=== PATIENT | female | born 1930 | race Asian ===

== ENCOUNTER 2016-10-14 13:08 | Inpatient (IN) | payer MEDICAID, MEDICARE ==
[2016-10-14] MEDS ORDERED: BABY ASPIRIN PO ONE (15:06)
--- NOTE | 2016-10-14 15:09 | Emergency Department Report ---
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 Reports patient unable to swallow BP medication Complaint: chest pain -: Gradual, days(s) Onset: during rest Pain Location: substernal ( ) Pain Radiation: neck Severity: mild Severity scale (0 -10): 2 Quality: aching Consistency: intermittent Improves With: nothing Worsens With: other (unable to swallow BP medication) re: denies: nausea, vomting, diaphoresis, dyspnea, sense of impending doom Other Symptoms: denies: cough, fever, syncope, rash, acid taste in mouth, leg swelling, palpitations, burping - Related Data Home Medications Medication Instructions Recorded Confirmed Last Taken Cyanocobalamin (Vitamin B-12) 500 mcg PO DAILY 07/18/16 10/14/16 10/14/16 [B-12] Ergocalciferol [Vitamin D2] 1 cap PO QWEEK 10/14/16 10/14/16 10/13/16 Losartan [Cozaar] 100 mg PO QDAY 10/14/16 10/14/16 10/14/16 hydrALAZINE [Apresoline TAB] 50 mg PO Q8HR 10/14/16 10/14/16 10/14/16 Previous Rx's Medication Instructions Recorded Last Taken Type Aspirin [Aspirin TAB] 325 mg PO QDAY #30 tablet 07/23/16 Unknown Rx Allergies Allergy/AdvReac Type Severity Reaction Status Date / Time No Known Allergies Allergy Unverified 07/18/16 10:47 MADISYN score - Madisyn Score Age > 65: (1) Yes Aspirin use within the Past 7 Days: (1) Yes 3 or more CAD Risk Factors: (0) No 2 or more Angina events in past 24 hrs: (1) Yes Known CAD with more than 50% Stenosis: (0) No Elevated Cardiac Markers: (0) No ST Deviation Greater than 0.5mm: (0) No MADISYN Score: 3 ED Review of Systems ROS: Stated complaint: HTN Other details as noted in HPI Other: GENERAL: No weight change, fatigue, weakness, fever, chills, or night sweats SKIN: No changes in skin or hair, no itching, no rashes, no jaundice HEAD: No trauma, headache, or visual changes EYES: No blurriness, tearing, itching, acute visual loss, conjunctival discoloration, or scleral icterus EARS: No hearing loss, tinnitus, vertigo, or earache NOSE: No rhinorrhea, stuffiness, sneezing, itching, or epistaxis MOUTH: No bleeding gums, hoarseness, sore throat, or swelling CARDIAC: chest pain RESPIRATORY: No shortness of breath, wheeze, cough, sputum production, hemoptysis, pneumonia, asthma, bronchitis, or emphysema GI: No change in appetite, nausea, vomiting, dysphagia, change in bowel frequency, diarrhea, constipation, bleeding, hematemesis, melena, hematochezia, or abdominal pain URINARY: No frequency, urgency, polyuria, dysuria, hematuria, or incontinence MUSCULOSKELETAL: No muscle weakness, joint stiffness, decrease in range of motion, redness, swelling, tenderness NEUROLOGIC: No loss of sensation, numbness, tingling, tremors, weakness, paralysis, seizures HEMATOLOGIC: No anemia, easy bruising, bleeding, petechiae, or purpura ENDOCRINE: No hot or cold intolerance, sweating, polyuria, polydipsia or, polyphagia no thyroid problems PSYCHIATRIC: No change in mood, no anxiety, no depression ED Past Medical Hx - Past Medical History Previous Medical History?: Yes Hx Hypertension: Yes Hx Congestive Heart Failure: No Hx Diabetes: No Hx Asthma: No Hx COPD: No Additional medical history: HIGH CHOLESTROL - Surgical History Past Surgical History?: Yes Additional Surgical History: CATARACT SURGERY - Social History Smoking Status: Never Smoker Substance Use Type: None - Medications Home Medications: Home Medications Medication Instructions Recorded Confirmed Last Taken Type Cyanocobalamin (Vitamin B-12) 500 mcg PO DAILY 07/18/16 10/14/16 10/14/16 History [B-12] Aspirin [Aspirin TAB] 325 mg PO QDAY #30 tablet 07/23/16 10/14/16 Unknown Rx Ergocalciferol [Vitamin D2] 1 cap PO QWEEK 10/14/16 10/14/16 10/13/16 History Losartan [Cozaar] 100 mg PO QDAY 10/14/16 10/14/16 10/14/16 History hydrALAZINE [Apresoline TAB] 50 mg PO Q8HR 10/14/16 10/14/16 10/14/16 History ED Physical Exam - General Limitations: No Limitations - Other Other exam information: GENERAL: Patient in no acute distress HEAD: Normocephalic, atraumatic EYES: PERRLA, EOM intact, no scleral icterus, no papilledema, no conjunctival hemorrhage, visual armas and acuity wnl, NOSE: No tenderness, discharge, sinus tenderness MOUTH: No erythema, bleeding, exudate HEART: Regular rate and rhythm, no murmur, S1-S2 are auscultated, pulses are symmetric LUNGS: No wheezing, rales, rhonchi, bilateral breath sounds ABDOMEN: Normal bowel sounds, no tenderness, no rebound, no guarding, no masses , no CVA tenderness MUSCULOSKELETAL: Normal joint range of motion, no redness, no swelling, no tenderness NEUROLOGIC:Alert, Cranial nerves intact, normal sensation, normal strength, normal gait, no cerebellar deficit SKIN: Skin is warm and dry, no wounds, no rashes ED Course Vital Signs 10/14/16 10/14/16 10/14/16 14:42 15:56 16:00 Temperature 98.6 F Pulse Rate 98 H 81 86 Respiratory 16 14 14 Rate Blood Pressure 212/86 186/59 O2 Sat by Pulse 100 97 Oximetry 10/14/16 10/14/16 10/14/16 16:16 16:30 16:46 Temperature Pulse Rate 88 93 H 89 Respiratory 13 17 16 Rate Blood Pressure 184/62 184/62 189/65 O2 Sat by Pulse 97 99 98 Oximetry 10/14/16 10/14/16 10/14/16 17:00 17:02 17:08 Temperature Pulse Rate 89 88 Respiratory 16 22 Rate Blood Pressure 194/56 189/65 O2 Sat by Pulse 98 98 Oximetry 10/14/16 10/14/16 10/14/16 17:15 17:30 17:45 Temperature Pulse Rate 84 89 96 H Respiratory 15 16 19 Rate Blood Pressure 189/65 169/73 169/73 O2 Sat by Pulse 98 97 99 Oximetry 10/14/16 10/14/16 10/14/16 18:01 18:15 18:30 Temperature Pulse Rate 82 82 78 Respiratory 17 16 17 Rate Blood Pressure 146/61 146/61 144/60 O2 Sat by Pulse 97 99 98 Oximetry 10/14/16 18:45 Temperature Pulse Rate 80 Respiratory 15 Rate Blood Pressure 144/60 O2 Sat by Pulse 98 Oximetry ED Medical Decision Making - Lab Data Result diagrams: 10/14/16 14:53 10/14/16 14:53 - EKG Data When compared to previous EKG there are: no significant change - Radiology Data Radiology results: report reviewed - Medical Decision Making Patient comfortable. Updated with results. Plan admission for further evaluation. Patient agrees with plan. Hospitalists accepts admission. Critical care attestation.: If time is entered above; I have spent that time in minutes in the direct care of this critically ill patient, excluding procedure time. ED Disposition Clinical Impression: Hypertensive emergency CHF (congestive heart failure) Qualifiers: Congestive heart failure type: unspecified congestive heart failure type Congestive heart failure chronicity: unspecified congestive heart failure chronicity Qualified Code(s): I50.9 - Heart failure, unspecified Chest pain Qualifiers: Chest pain type: unspecified Qualified Code(s): R07.9 - Chest pain, unspecified Disposition: OP ADMITTED IP TO THIS HOSP Is pt being admited?: Yes Condition: Stable Time of Disposition: 16:52
[2016-10-14 15:10] LABS: Basophils % (Auto) 0.3 % (0.0-1.8); Eosinophils % (Auto) 0.4 % (0.0-4.3); Hematocrit 32.6 % (30.3-42.9); Hemoglobin 10.6 gm/dl (10.1-14.3); Mean Corpuscular HGB Conc 33 % (30-34); Mean Corpuscular Volume 77 fl (79-97); Platelet Count 238 K/mm3 (140-440); Red Blood Count 4.22 M/mm3 (3.65-5.03); Red Cell Distribution Width 14.6 % (13.2-15.2); White Blood Count 9.1 K/mm3 (4.5-11.0)
[2016-10-14 15:15] LABS: Mean Corpuscular Hemoglobin 25 pg (28-32)
[2016-10-14 15:27] LABS: Calcium 9.3 mg/dL (8.4-10.2); Chloride 91.5 mmol/L (98-107); Potassium 3.5 mmol/L (3.6-5.0)
[2016-10-14 15:40] LABS: INR 0.99 (0.87-1.13)
[2016-10-14 15:41] LABS: Partial Thromboplastin Time 52.4 Sec. (24.2-36.6)
--- NOTE | 2016-10-14 15:56 | Cat Scan Report ---
Cranial CT without contrast. History: Altered mental status. Findings: Comparison is made to the previous study on July 21, 2016. There is no evidence of acute hemorrhage or infarct. 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 There are no masses or extra-axial collections. Age-appropriate senescent changes are again noted. The calvarium is intact. Impression: No acute findings or interval changes since July 21, 2016.
--- NOTE | 2016-10-14 16:07 | XRay Report ---
AP CHEST :10/14/16 15:44 CLINICAL: Tachycardia. COMPARISON:07/18/16 FINDINGS: Normal heart and pulmonary vasculature. Aortic ectasia and calcification. The lungs are normally expanded and clear. The bones and soft tissues are normal. IMPRESSION: No acute cardiopulmonary process.
--- NOTE | 2016-10-14 16:17 | Admit Criteria Form ---
Admission Criteria Documentation: CHEST PAIN Clinical Indications for Admission to Inpatient Care (Place 'X' for any and all applicable criteria): Admission is indicated for chest pain and ANY ONE of the following(1)(2)(3)(4)(5 ): [ ]I. Angina with acute coronary syndrome (Also use Myocardial Infarction or Angina guideline) [ ]II. Hemodynamic instability [X ]III. Angina needing acute intervention as indicated by ALL of the following (11)(12): [ X]a) Unstable angina is present as indicated by angina that is ANY ONE of the following: [ ]i) New onset [ ]ii) Nocturnal [ ]iii) Prolonged at rest [X ]iv) Progressive [ X]b) Angina warrants acute intervention as indicated by ANY ONE of the following: [ ]i) Recurrent angina (e.g, not responding as previously to treatment) [ ]ii) Angina at rest or with low-level activities despite initial medical therapy [ ]iii) New or presumably new ST-segment depression on ECG [ ]iv) Signs or symptoms of heart failure (eg, dyspnea, pulmonary edema) [ ]v) New or worsening mitral regurgitation [ ]vi) Hemodynamic instability [ ]vii) Dangerous arrhythmia (eg, sustained ventricular tachycardia) [ ]viii) History of percutaneous coronary intervention within 6 months [ ]ix) History of coronary artery bypass graft surgery [ X]x) MADISYN risk score of 2 or greater[A] [ ]xi) History of Diabetes(14) [ ]xii) High-risk cardiac ischemia findings on noninvasive testing (e.g, echocardiogram, treadmill testing, nuclear scan) [ ]xiii) Chronic renal insufficiency (ie, estimated GFR less than 60 mL/min/1.732m) [ ]xiv) Left ventricular ejection fraction less than 40% [ ]IV. Evidence of CO (eg, cardiac biomarkers positive, ST-segment elevation on ECG) also use Myocardial Infarction Criteria Form. [ ]V. Pulmonary edema [ ]. Respiratory distress [ ]VII. Chest pain indicative of serious diagnosis other than coronary artery disease (eg, aortic dissection) [ ]VIII. Contraindications and/or Inappropriate clinical situations for Observational Care in patients with Chest Pain, when ANY ONE of the following is required: [ ]a) Patient with risk factor for pulmonary embolism, acute coronary syndrome and myocardial infarction (18) [ ]b) Patient with Pulmonary embolism require an average LOS of 4.3 days, therefore emergency department observation management is inappropriate 18,23 [ ]c) Painful condition/s in the elderly, have the highest rate of recidivism after emergency department observation management (10.8%) 20,21,22 [ ]d) Elevated cardiac biomarker requires intensive and exhaustive care (19) [X ]IX. General contraindications and/or Inappropriate clinical situations for Observational Care in patients with Chest Pain, when ANY ONE of the following is required: [ ]a) Prediction of prolongation of LOS based on ANY ONE of the following may be considered as a contraindication for observational care 2, 3, 4, 5, 6, 7, 8, 9, 10, 11 [ ]i) Age > 65 yrs. [ ]ii) Patient arriving by ambulance [ ]iii) Patient with high acuity [ ]iv) Patient requiring vital sign monitoring [ ]v) Patient on IV medication [X ]b) Systolic blood pressures 180mmHg 3,12 [ ]c) Patient with altered mental status including delirium and other alteration of consciousness, (3) [ ]d) Patient whose discharge disposition will be to a nursing home home or rehabilitation home should not be managed in Emergency Department Observation Unit. CMS rule requires 3 days hospital stay before such placement. 3,13 [ ]e) Patient with failure to thrive due to broad array of etiologies 3,16,17 [ ]f) Inability to ambulate 3,14 Extended stay beyond goal length of stay may be needed for (1)(28): [ ]a) Specific condition diagnosed after evaluation (eg, pulmonary embolism, aortic dissection) [ ]b) Unstable angina [ ]c) Continued suspicion of acute coronary syndrome with inability to complete needed cardiac evaluation (eg, patient clinically unable to undergo stress testing) [ ]d) Myocardial infarction (Contents from ANGINA and CHEST PAIN clinical indications for admission to inpatient care have been integrated in this form) The original [employer] content created by [employer] has been revised. The portions of the content which have been revised are identified through the use of italic text or in bold, and [email or web address] has neither reviewed nor approved the modified material. All other unmodified content is copyright [employer]. Please see references footnoted in the original [facility] edition 2016 Admission Criteria Met: Yes
[2016-10-14] MEDS ORDERED: K-DUR PO ONE (16:49)
[2016-10-14] MEDS ORDERED: LASIX IV ONE (16:49)
[2016-10-14] MEDS ORDERED: CATAPRES PO ONE (16:49)
--- NOTE | 2016-10-14 16:51 | History and Physical Report ---
History of Present Illness Chief complaint: chest pain History of present illness: 86 YO Female with HTN, HLD, GERD presents with Chest pain. Pt states that she has been experiencing pain in her chest for the past week, with worsening symptoms over the past 12 hours. Pt acknowledges difficulty swallowing, but denies shortness of breath, fever, chills, palpitations, unintentional weight loss, night sweats, syncope, productive cough, loss of bowel/bladder continence , leg swelling/calf pain, individual/family history of DVT/PE, trauma, or recent ill contacts. Past History Past Medical History: GERD, hypertension, hyperlipidemia Past Surgical History: cataract removal Social history: . denies: smoking, alcohol abuse, prescription drug abuse Family history: hypertension Medications and Allergies Allergies Allergy/AdvReac Type Severity Reaction Status Date / Time No Known Allergies Allergy Unverified 07/18/16 10:47 Home Medications Medication Instructions Recorded Confirmed Last Taken Type Cyanocobalamin (Vitamin B-12) 500 mcg PO DAILY 07/18/16 10/14/16 10/14/16 History [B-12] Aspirin [Aspirin TAB] 325 mg PO QDAY #30 tablet 07/23/16 10/14/16 Unknown Rx Ergocalciferol [Vitamin D2] 1 cap PO QWEEK 10/14/16 10/14/16 10/13/16 History Losartan [Cozaar] 100 mg PO QDAY 10/14/16 10/14/16 10/14/16 History hydrALAZINE [Apresoline TAB] 50 mg PO Q8HR 10/14/16 10/14/16 10/14/16 History Review of Systems All systems: negative Cardiovascular: chest pain Exam - Constitutional Vitals: Temp Pulse Resp BP Pulse Ox 98.6 F 98 H 16 212/86 100 10/14/16 14:42 10/14/16 14:42 10/14/16 14:42 10/14/16 14:42 10/14/16 14:42 General appearance: Present: obese - EENT Eyes: Present: PERRL ENT: hearing intact, clear oral mucosa - Neck Neck: Present: supple, normal ROM - Respiratory Respiratory effort: normal Respiratory: bilateral: diminished - Cardiovascular Heart Sounds: Present: S1 & S2. Absent: rub, click - Extremities Extremities: pulses symmetrical, No edema Extremity abnormal: edema Peripheral Pulses: within normal limits - Abdominal General gastrointestinal: Present: soft, non-tender, non-distended, normal bowel sounds Female genitourinary: Present: normal - Integumentary Integumentary: Present: clear, warm, dry - Musculoskeletal Musculoskeletal: gait normal, strength equal bilaterally - Psychiatric Psychiatric: appropriate mood/affect, intact judgment & insight - Neurologic Neurologic: CNII-XII intact, moves all extremities Results - Labs CBC & Chem 7: 10/14/16 14:53 10/14/16 14:53 Labs: Abnormal lab results 10/14/16 10/14/16 10/14/16 Range/Units 14:53 14:53 15:16 MCV 77 L (79-97) fl MCH 25 L (28-32) pg Lymph % (Auto) 12.1 L (13.4-35.0) % [place] % (Auto) 8.7 H (0.0-7.3) % Lymph # 1.1 L (1.2-5.4) K/mm3 Seg Neutrophils % 78.5 H (40.0-70.0) % APTT (24.2-36.6) Sec. Sodium 129 L (137-145) mmol/L Potassium 3.5 L (3.6-5.0) mmol/L Chloride 91.5 L (98-107) mmol/L Carbon Dioxide 17 L (22-30) mmol/L Glucose 114 H (65-100) mg/dL NT-Pro-B Natriuret Pep 1816 H (0-900) pg/mL 10/14/16 Range/Units 15:16 MCV (79-97) fl MCH (28-32) pg Lymph % (Auto) (13.4-35.0) % [place] % (Auto) (0.0-7.3) % Lymph # (1.2-5.4) K/mm3 Seg Neutrophils % (40.0-70.0) % APTT 52.4 H (24.2-36.6) Sec. Sodium (137-145) mmol/L Potassium (3.6-5.0) mmol/L Chloride (98-107) mmol/L Carbon Dioxide (22-30) mmol/L Glucose (65-100) mg/dL NT-Pro-B Natriuret Pep (0-900) pg/mL Assessment and Plan - Patient Problems (1) ACS (acute coronary syndrome) Current Visit: Yes Status: Acute Plan to address problem: Serial Cardiac enzymes, EKG, telemetry, supportive care, echo, stress test, cardiology consulted, (2) CHF (congestive heart failure) Current Visit: Yes Status: Acute Qualifiers: Congestive heart failure type: C Congestive heart failure chronicity: C Plan to address problem: CHF protocol: fluid restriction, diuresis, afterload reduction, echo, supportive care, uop q shift, (3) Malignant hypertension Current Visit: Yes Status: Acute Plan to address problem: Monitor bp q shift, hydralazine prn, resume home medication (4) Hyponatremia syndrome Current Visit: Yes Status: Acute Plan to address problem: supportive care, repeat bmp in am (5) Metabolic acidosis Current Visit: Yes Status: Acute Plan to address problem: treat chf, ivf, suuportive care, (6) DVT prophylaxis Current Visit: Yes Status: Acute
[2016-10-14] MEDS ORDERED: DUONEB 0.5 MG-3 MG/3 ML SOLN IH PRN (18:27)
[2016-10-14] MEDS ORDERED: DULCOLAX PR PRN (18:27)
[2016-10-14] MEDS ORDERED: TYLENOL PO PRN (18:27)
[2016-10-14] MEDS ORDERED: MILK OF MAGNESIA PO PRN (18:27)
[2016-10-14] MEDS ORDERED: ZOFRAN IV PRN (18:27)
[2016-10-14] MEDS ORDERED: APRESOLINE IV PRN (18:32)
[2016-10-14] MEDS ORDERED: SODIUM CHLORIDE FLUSH SYRINGE 10 ML IV PRN (18:34)
[2016-10-14] MEDS ORDERED: PROVENTIL IH PRN (18:57)
[2016-10-14 22:53] LABS: Creatine Kinase MB 5.3 ng/mL (0.0-4.0)
[2016-10-14] MEDS: APRESOLINE PO SCH (23:25)
[2016-10-15] MEDS: APRESOLINE PO SCH ×3 (05:56→21:59)
[2016-10-15] MEDS ORDERED: LASIX IV SCH (10:00)
[2016-10-15] MEDS ORDERED: NON-FORMULARY (Losartan [Cozaar] 100 MG) PO SCH (10:00)
[2016-10-15] MEDS ORDERED: LEXISCAN IV ONE ×2 (10:53→11:01)
--- NOTE | 2016-10-15 14:58 | Progress Note ---
Assessment and Plan Assessment and plan: SOB Chest pain - Serial cardiac enzymes were negative - EKG no ST elevation VA - Stress test and echo was done pending reading Disposition - Patient most likely will be discharged tomorrow morning History Interval history: Patient was seen and evaluated this morning, a lot of family members were in the room, patient doesn't speak Estonian and her family member police detective for her. Patient denies shortness of breath and chest pain. Hospitalist Physical - Physical exam Narrative exam: Not in cardiopulmonary distress. The patient appeared well nourished and normally developed. Vital signs as documented. Head exam is unremarkable. No scleral icterus . Neck is without jugular venous distension, thyromegaly, or carotid bruits. Lungs are clear to auscultation. Cardiac exam reveals regular rate and Rhythm. First and second heart sounds normal. No murmurs, rubs or gallops. Abdominal exam reveals normal bowel sounds, no masses, no organomegaly and no aortic enlargement. Extremities are nonedematous and both femoral and pedal pulses are normal. 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 - Constitutional Vitals: Temp Pulse Resp BP Pulse Ox 98.2 F 111 H 20 137/60 94 10/15/16 01:50 10/15/16 12:28 10/14/16 23:00 10/15/16 11:42 10/15/16 10:00 General appearance: Present: obese Results - Labs CBC & Chem 7: 10/14/16 14:53 10/14/16 14:53 Labs: Laboratory Last Values WBC 9.1 K/mm3 (4.5-11.0) 10/14/16 14:53 RBC 4.22 M/mm3 (3.65-5.03) 10/14/16 14:53 Hgb 10.6 gm/dl (10.1-14.3) 10/14/16 14:53 Hct 32.6 % (30.3-42.9) 10/14/16 14:53 MCV 77 fl (79-97) L 10/14/16 14:53 MCH 25 pg (28-32) L 10/14/16 14:53 MCHC 33 % (30-34) 10/14/16 14:53 RDW 14.6 % (13.2-15.2) 10/14/16 14:53 Plt Count 238 K/mm3 (140-440) 10/14/16 14:53 Lymph % (Auto) 12.1 % (13.4-35.0) L 10/14/16 14:53 [place] % (Auto) 8.7 % (0.0-7.3) H 10/14/16 14:53 Eos % (Auto) 0.4 % (0.0-4.3) 10/14/16 14:53 Baso % (Auto) 0.3 % (0.0-1.8) 10/14/16 14:53 Lymph # 1.1 K/mm3 (1.2-5.4) L 10/14/16 14:53 [place] # 0.8 K/mm3 (0.0-0.8) 10/14/16 14:53 Eos # 0.0 K/mm3 (0.0-0.4) 10/14/16 14:53 Baso # 0.0 K/mm3 (0.0-0.1) 10/14/16 14:53 Seg Neutrophils % 78.5 % (40.0-70.0) H 10/14/16 14:53 Seg Neutrophils # 7.1 K/mm3 (1.8-7.7) 10/14/16 14:53 PT 13.0 Sec. (12.2-14.9) 10/14/16 15:16 INR 0.99 (0.87-1.13) 10/14/16 15:16 APTT 52.4 Sec. (24.2-36.6) H 10/14/16 15:16 Sodium 129 mmol/L (137-145) L 10/14/16 14:53 Potassium 3.5 mmol/L (3.6-5.0) L 10/14/16 14:53 Chloride 91.5 mmol/L (98-107) L 10/14/16 14:53 Carbon Dioxide 17 mmol/L (22-30) L 10/14/16 14:53 Anion Gap 24 mmol/L 10/14/16 14:53 BUN 17 mg/dL (7-17) 10/14/16 14:53 Creatinine 1.0 mg/dL (0.7-1.2) 10/14/16 14:53 Estimated GFR 52 ml/min 10/14/16 14:53 BUN/Creatinine Ratio 17.00 % 10/14/16 14:53 Glucose 114 mg/dL (65-100) H 10/14/16 14:53 Calcium 9.3 mg/dL (8.4-10.2) 10/14/16 14:53 Total Creatine Kinase 286 units/L (30-135) H 10/15/16 00:18 CK-MB (CK-2) 5.0 ng/mL (0.0-4.0) H 10/15/16 00:18 CK-MB (CK-2) Rel Index 1.7 (0-4) 10/15/16 00:18 Troponin T 0.017 ng/mL (0.00-0.029) 10/14/16 20:53 NT-Pro-B Natriuret Pep 1816 pg/mL (0-900) H 10/14/16 15:16
[2016-10-15] MEDS: COZAAR PO SCH (16:14)
[2016-10-15] MEDS: ASPIRIN PO SCH (16:14)
[2016-10-15] MEDS: VITAMIN B-12 PO SCH (16:15)
--- NOTE | 2016-10-15 20:41 | Consultation ---
History of Present Illness Consult date: 10/15/16 Consult reason: shortness of breath History of present illness: The patient is an 86-year-old male who does not speak [place]an. History taking is difficult due to language barrier. He presented to the hospital with complaints of shortness of breath and blood pressure elevation. On presentation , the blood pressure was over 200 systolic. There was no report of chest pain or palpitations or syncope. Cardiac consultation was requested for "CHF", but patient has no lower extremity edema, and chest x-ray on my review shows no interstitial edema or CHF. The ECG is normal sinus rhythm with left ventricular hypertrophy by voltage criteria, otherwise normal ECG. Cardiac workup today includes an echocardiogram that showed well-preserved left ventricular systolic function, ejection fraction 50-55%, calcified aortic valve with mild aortic stenosis otherwise no significant mild disease on the echo. Persantine thallium stress test also done today was normal. Past History Past Medical History: GERD, hypertension, hyperlipidemia Past Surgical History: cataract removal Social history: . denies: smoking, alcohol abuse, prescription drug abuse Family history: hypertension Medications and Allergies Allergies Allergy/AdvReac Type Severity Reaction Status Date / Time No Known Allergies Allergy Unverified 07/18/16 10:47 Home Medications Medication Instructions Recorded Confirmed Last Taken Type Cyanocobalamin (Vitamin B-12) 500 mcg PO DAILY 07/18/16 10/14/16 10/14/16 History [B-12] Aspirin [Aspirin TAB] 325 mg PO QDAY #30 tablet 07/23/16 10/14/16 Unknown Rx Ergocalciferol [Vitamin D2] 1 cap PO QWEEK 10/14/16 10/14/16 10/13/16 History Losartan [Cozaar] 100 mg PO QDAY 10/14/16 10/14/16 10/14/16 History hydrALAZINE [Apresoline TAB] 50 mg PO Q8HR 10/14/16 10/14/16 10/14/16 History Active Meds: Active Medications Acetaminophen (Tylenol) 650 mg PO Q4H PRN PRN Reason: Pain MILD(1-3)/Fever >100.5/MONCADA Albuterol (Proventil) 2.5 mg IH Q4HRT PRN PRN Reason: Shortness Of Breath Aspirin (Aspirin) 325 mg PO QDAY ANDREAS Last Admin: 10/15/16 16:14 Dose: 325 mg Bisacodyl (Dulcolax) 10 mg AK QDAY PRN PRN Reason: Constipation unrelieved by MOM Cyanocobalamin (Vitamin B-12) 500 mcg PO DAILY [facility] Last Admin: 10/15/16 16:15 Dose: 500 mcg Ergocalciferol (Vitamin D2) 50,000 unit PO Mo [facility] Furosemide (Lasix) 20 mg IV QDAY [facility] Last Admin: 10/15/16 16:15 Dose: 20 mg Hydralazine HCl (Apresoline) 50 mg PO Q8HR [facility] Last Admin: 10/15/16 16:16 Dose: 50 mg Hydralazine HCl (Apresoline) 10 mg IV Q6HR PRN PRN Reason: Hypertension Losartan Potassium (Cozaar) 100 mg PO QDAY [facility] Last Admin: 10/15/16 16:14 Dose: 100 mg Magnesium Hydroxide (Milk Of Magnesia) 30 ml PO Q4H PRN PRN Reason: Constipation Ondansetron HCl (Zofran) 4 mg IV Q8H PRN PRN Reason: N/V unrelieved by Reglan Sodium Chloride (Sodium Chloride Flush Syringe 10 Ml) 10 ml IV PRN PRN PRN Reason: LINE FLUSH Review of Systems Cardiovascular: shortness of breath, no chest pain, no orthopnea, no palpitations, no rapid/irregular heart beat, no edema, no syncope, no lightheadedness Physical Examination Vital Signs Temp Pulse Resp BP Pulse Ox 98.6 F 98 H 16 212/86 100 10/14/16 14:42 10/14/16 14:42 10/14/16 14:42 10/14/16 14:42 10/14/16 14:42 General appearance: no acute distress HEENT: Positive: PERRL Neck: Positive: neck supple Cardiac: Positive: Reg Rate and Rhythm, Systolic Murmur Lungs: Positive: Decreased Breath Sounds Neuro: Positive: Grossly Intact Abdomen: Positive: Soft Female genitourinary: deferred Skin: Positive: Clear Extremities: Absent: edema Results 10/14/16 14:53 10/14/16 14:53 Cardiac Enzymes 10/14/16 10/15/16 Range/Units 20:53 00:18 CK-MB (CK-2) 5.3 H 5.0 H (0.0-4.0) ng/mL EKG interpretations - Telemetry EKG Rhythm: Sinus Rhythm Assessment and Plan Patient's cardiac workup is negative including ECG, cardiac enzymes, echocardiogram and Persantine thallium. Aortic valve sclerosis will be managed conservatively. Recommend aggressive management of hypertension.
--- NOTE | 2016-10-16 02:58 | Treadmill Report ---
THALLIUM STRESS TEST LEFT VENTRICLE: Left ventricular chamber size is within normal. Perfusion study demonstrates homogeneous uptake of the tracer in all segment, no significant perfusion defects identified. Gated analysis demonstrates normal left ventricular systolic function, ejection fraction 71%. CONCLUSION: Normal myocardial perfusion study. JOB# [id number] CA/NTS
[2016-10-16] MEDS: APRESOLINE PO SCH (06:04)
[2016-10-16 06:18] LABS: Basophils % (Auto) 0.3 % (0.0-1.8); Eosinophils % (Auto) 1.6 % (0.0-4.3); Hematocrit 28.3 % (30.3-42.9); Hemoglobin 9.2 gm/dl (10.1-14.3); Mean Corpuscular HGB Conc 33 % (30-34); Mean Corpuscular Volume 79 fl (79-97); Platelet Count 188 K/mm3 (140-440); Red Blood Count 3.59 M/mm3 (3.65-5.03); Red Cell Distribution Width 14.9 % (13.2-15.2); White Blood Count 7.1 K/mm3 (4.5-11.0)
[2016-10-16 06:19] LABS: Mean Corpuscular Hemoglobin 26 pg (28-32)
[2016-10-16 06:48] LABS: BUN/Creatinine Ratio 18.57; Calcium 8.2 mg/dL (8.4-10.2); Potassium 3.4 mmol/L (3.6-5.0)
[2016-10-16] MEDS ORDERED: K-DUR PO ONE ×2 (07:57→12:00)
[2016-10-16] MEDS ORDERED: NACL 0.9% 500 ML 500 ML IV ONE (07:58)
[2016-10-16 08:17] VITALS: BP 126/59
--- NOTE | 2016-10-16 09:56 | Discharge Summary ---
Providers - Providers Date of Admission: 10/14/16 18:27 Date of discharge: 10/16/16 Attending physician: NAOMY TOURE MD 10/14/16 Consult to Cardiac Rehabilitation [CONS] Routine Reason For Exam: Phase I Primary care physician: LITIGATION CLAIM REPRESENTATIVE Hospitalization Reason for admission: chest pain Condition: Stable Pertinent studies: Echo ejection fraction 55-60% mild aortic stenosis Thallium stress test negative Hospital course: 86 YO Female with HTN, HLD, GERD presents with Chest pain. Pt states that she has been experiencing pain in her chest for the past week, with worsening symptoms over the past 12 hours. Pt acknowledges difficulty swallowing, but denies shortness of breath, fever, chills, palpitations, unintentional weight loss, night sweats, syncope, productive cough, loss of bowel/bladder continence , leg swelling/calf pain, individual/family history of DVT/PE, trauma, or recent ill contacts. Patient was admitted to floor cardiac enzymes were negative, EKG normal sinus rhythm, echocardiogram ejection fraction 55-60%, thallium stress test was negative. Patient denied any shortness of breath or chest pain after admission , patient's blood pressure was controlled. Patient was stable at the time of discharge. Patient was advised to continue her blood pressure medications at home. Her daughter was in the room who interprets for her. Per her daughter the patient is noncompliant with her blood pressure medication and I counseled her about medication adherence. Patient's questions and concerns were addressed at the bedside. Cardiology was consulted and input appreciated. Disposition: DISCHARGED TO HOME OR SELFCARE Time spent for discharge: 31 minutes - Discharge Diagnoses (1) Chest pain Status: Acute Qualifiers: Chest pain type: unspecified Ischemic chest pain type: I Qualified Code(s ): R07.9 - Chest pain, unspecified (2) Malignant hypertension Status: Acute Core Measure Documentation - Palliative Care Palliative Care/ Comfort Measures: Not Applicable - Core Measures Any of the following diagnoses?: none Exam - Physical Exam Narrative exam: Not in cardiopulmonary distress. The patient appeared well nourished and normally developed. Vital signs as documented. Head exam is unremarkable. No scleral icterus . Neck is without jugular venous distension, thyromegaly, or carotid bruits. Lungs are clear to auscultation. Cardiac exam reveals regular rate and Rhythm. First and second heart sounds normal. No murmurs, rubs or gallops. Abdominal exam reveals normal bowel sounds, no masses, no organomegaly and no aortic enlargement. Extremities are nonedematous and both femoral and pedal pulses are normal. [employer]: Alert and oriented. - Constitutional Vitals: Temp Pulse Resp BP Pulse Ox 97.8 F 70 20 126/59 98 10/16/16 08:00 10/16/16 08:00 10/16/16 08:00 10/16/16 08:00 10/16/16 08:00 Plan Activity: no restrictions Weight Bearing Status: Full Weight Bearing Diet: low cholesterol, low salt Follow up with: PRIMARY CARE, [Primary Care Provider] - 3-5 Days
[2016-10-16] MEDS ORDERED: NACL 0.9% 1000 ML 1,000 ML ONE (11:50)
[2016-10-16] MEDS: COZAAR PO SCH (12:05)
[2016-10-16] MEDS: VITAMIN B-12 PO SCH (12:05)
[2016-10-16] MEDS: ASPIRIN PO SCH (12:05)
--- NOTE | 2016-10-16 13:03 | Query- Chest Pain ---
Dear ___[place] Date: 10/16/16 Pizza Maker/CDS: Isai Darshana Phone#:____[phone] Exercise your independent professional judgment when responding to query. Questions asked do not imply a particular answer is desired or expected. We greatly appreciate your clarification on this issue. Clinical Documentation States: 86 year old female was admitted on 10/14/16. The discharge summary states " Discharge Diagnoses(1) Chest pain Status: Acute Qualifiers: Chest pain type: unspecified Qualified Code(s): R07.9 - Chest pain, unspecified " The cardiology consult note states " The patient is an 86-year-old male who does not speak [place]an. History taking is difficult due to language barrier. He presented to the hospital with complaints of shortness of breath and blood pressure elevation. On presentation, the blood pressure was over 200 systolic. There was no report of chest pain or palpitations or syncope. Cardiac consultation was requested for "CHF", but patient has no lower extremity edema, and chest x-ray on my review shows no interstitial edema or CHF. The ECG is normal sinus rhythm with left ventricular hypertrophy by voltage criteria, otherwise normal ECG. Cardiac workup today includes an echocardiogram that showed well-preserved left ventricular systolic function, ejection fraction 50-55%, calcified aortic valve with mild aortic stenosis otherwise no significant mild disease on the echo. Persantine thallium stress test also done today was normal. " Clinical Findings Show: Exercise stress test conclusion: Normal myocardial perfusion study Please document the etiology of Chest Pain: [ ] Myocardial Infarction [ ] Pneumonia [ ] Mediastinitis [ ] Costochondritis [ ] Pulmonary Embolism [ ] Coronary Artery Disease [x ] GERD [ ] Other: [ ] Comment/Explanation: Present on Admission: [x ] Yes (Y) [ ] Clinically undeterminable (W) [ ] No(N) Please document response in your Progress Notes and/or Discharge Summary and indicate if the condition was present on admission. SAMAN
[2016-10-21] MEDS ORDERED: VITAMIN D2 PO SCH ×2 (10:00)
== END 2016-10-16 12:33 | disposition home or self-care (01) | DRG 392 ==
LOC: ED 13:08 → 4A 18:27
PROVIDERS: ADMIT Internal Medicine; ATTEND Internal Medicine
DX: K21.9 Gastro-esophageal reflux disease without esophagitis (principal); I24.9 Acute ischemic heart disease, unspecified; I11.0 Hypertensive heart disease with heart failure; I50.9 Heart failure, unspecified; E87.1 Hypo-osmolality and hyponatremia; E87.2 Acidosis; I35.8 Other nonrheumatic aortic valve disorders; E78.5 Hyperlipidemia, unspecified; Z82.49 Family history of ischemic heart disease and other diseases of the circulatory system; Z98.49 Cataract extraction status, unspecified eye
CPT/HCPCS: 36415; 70450; 71010; 78452; 80048; 82550; 82553; 83880; 84484; 85025; 85610; 85730; 93005; 93010; 93017; 93306; 96374; A9502; J1940; J2785; J7030

== ENCOUNTER 2016-10-18 04:59 | Inpatient (IN) | payer MEDICAID, MEDICARE ==
[2016-10-18 06:09] LABS: Basophils % (Auto) 0.1 % (0.0-1.8); Eosinophils % (Auto) 0.5 % (0.0-4.3); Hematocrit 29.7 % (30.3-42.9); Hemoglobin 9.6 gm/dl (10.1-14.3); Mean Corpuscular HGB Conc 32 % (30-34); Mean Corpuscular Hemoglobin 25 pg (28-32); Mean Corpuscular Volume 77 fl (79-97); Platelet Count 197 K/mm3 (140-440); Red Blood Count 3.84 M/mm3 (3.65-5.03); Red Cell Distribution Width 14.1 % (13.2-15.2); White Blood Count 12.2 K/mm3 (4.5-11.0)
[2016-10-18 06:33] LABS: BUN/Creatinine Ratio 18.18; Chloride 81.3 mmol/L (98-107); Potassium 3.5 mmol/L (3.6-5.0)
[2016-10-18] MEDS ORDERED: CATAPRES PO ONE (06:36)
[2016-10-18] MEDS ORDERED: PEPCID IV ONE (06:36)
[2016-10-18] MEDS ORDERED: ZOFRAN IV ONE (06:36)
[2016-10-18] MEDS ORDERED: TORADOL IV ONE (06:36)
[2016-10-18 06:41] LABS: Albumin 3.6 g/dL (3.9-5); Albumin/Globulin Ratio 1.2 %; Bilirubin,Direct 0.2 mg/dL (0-0.2); Bilirubin,Indirect 0.7 mg/dL; Bilirubin,Total 0.9 mg/dL (0.1-1.2); Total Protein 6.7 g/dL (6.3-8.2)
[2016-10-18] MEDS ORDERED: NACL 0.9% 1000 ML 1,000 ML IV ONE (06:41)
[2016-10-18] MEDS ORDERED: K-DUR PO ONE ×2 (06:44→08:47)
[2016-10-18 06:51] LABS: Bilirubin,Urine NEG (Negative); Blood,Urine NEG (Negative); Ketones,Urine NEG (Negative); Leukocyte Esterase,Urine TR (Negative); Mucus,Urine FEW /HPF; Nitrite,Urine NEG (Negative); Protein,Urine <15 mg/dL mg/dL (Negative); Urobilinogen,Urine < 2.0 mg/dL (<2.0)
--- NOTE | 2016-10-18 07:07 | Emergency Department Report ---
ED N/V/D HPI - General Chief complaint: Pain General Stated complaint: FLU SX Time Seen by Provider: 10/18/16 06:19 Source: family, EMS Mode of arrival: Stretcher Limitations: Language Barrier - History of Present Illness Initial comments: 86-year-old female with a past medical history of PVCs CVA, hypertension, and elevated cholesterol presents to the hospital complains of vomiting and generalized weakness since yesterday. Symptoms started after taking blood pressure medication. Patient was recently discharged from the hospital on October 16 after 3 day admission for malignant hypertension and chest pain. Stress test (negative) and echo was performed. Family member seem to think that the blood pressure medication has caused her symptoms however, patient has been on her losartan and hydralazine at least since August past per prescription bottle at the bedside. Patient is vomiting after any by mouth intake. Patient complains of generalized body aches however denies abdominal pain, diarrhea, or fever. Pain overall rate of 4/10 intensity without aggravating or alleviating factors. Patient has visual disturbances secondary to previous stroke. - Related Data Home Medications Medication Instructions Recorded Confirmed Last Taken RX: Cyanocobalamin (Vitamin B-12) 500 mcg PO DAILY 07/18/16 10/18/16 10/14/16 [B-12] RX: Ergocalciferol [Vitamin D2] 1 cap PO QWEEK 10/14/16 10/18/16 10/13/16 RX: Losartan [Cozaar] 100 mg PO QDAY 10/14/16 10/18/16 10/14/16 RX: hydrALAZINE [Apresoline TAB] 50 mg PO Q8HR 10/14/16 10/18/16 10/14/16 Previous Rx's Medication Instructions Recorded Last Taken Type RX: Aspirin [Aspirin TAB] 325 mg PO QDAY #30 tablet 07/23/16 Unknown Rx Allergies Allergy/AdvReac Type Severity Reaction Status Date / Time No Known Allergies Allergy Unverified 07/18/16 10:47 ED Review of Systems ROS: Stated complaint: FLU SX Other details as noted in HPI Comment: All other systems reviewed and negative Other: Constitutional: No fevers chills Eyes: No eye pain visual changes ENT: No ear pain or throat pain Neck: Denies pain Respiratory: Denies cough wheezing shortness of breath Cardiovascular: Denies chest pain GI:as per hpi : Denies dysuria Musculoskeletal: generalized aches Skin: Denies rash, lesions, erythema Neurologic: Denies headache, numbness Psychiatric: Denies suicidal ideation, hallucinations ED Past Medical Hx - Past Medical History Hx Hypertension: Yes 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 ECHO 10/14/2016: EF 50-55%, Mild to mod LVH. STRESS TEST: 10/14/2016: NORMAL. LEFT CAROTID STENOSIS - Surgical History Past Surgical History?: Yes Additional Surgical History: CATARACT SURGERY - Social History Smoking Status: Never Smoker Substance Use Type: None - Medications Home Medications: Home Medications Medication Instructions Recorded Confirmed Last Taken Type RX: Cyanocobalamin (Vitamin B-12) 500 mcg PO DAILY 07/18/16 10/18/16 10/14/16 History [B-12] RX: Aspirin [Aspirin TAB] 325 mg PO QDAY #30 tablet 07/23/16 10/18/16 Unknown Rx RX: Ergocalciferol [Vitamin D2] 1 cap PO QWEEK 10/14/16 10/18/16 10/13/16 History RX: Losartan [Cozaar] 100 mg PO QDAY 10/14/16 10/18/16 10/14/16 History RX: hydrALAZINE [Apresoline TAB] 50 mg PO Q8HR 10/14/16 10/18/16 10/14/16 History ED Physical Exam - General Limitations: Language Barrier - Other Other exam information: General: No limitations, patient is alert in no acute distress Head exam: Atraumatic, normocephalic Eyes exam: Normal appearance ENT: Moist mucous membrane, normal oropharynx Neck exam: Normal inspection, full range of motion, no meningismus nontender Respiratory exam: Clear to auscultation bilateral, no wheezes, rales, crackles Cardiovascular: Normal rate and rhythm, normal heart sounds Abdomen: Soft, nondistended, and nontender, with normal bowel sounds, no rebound, or guarding Extremity: Full range of motion normal inspection no deformity Back: Normal Inspection, full range of motion, no tenderness Neurologic: Alert, oriented x3, cranial nerves intact, no motor or sensory deficit Psychiatric: normal affect, normal mood Skin: Warm, dry, intact ED Course Vital Signs 10/18/16 10/18/16 10/18/16 05:26 05:28 06:52 Temperature 98.7 F 98.7 F Pulse Rate 87 87 Respiratory 22 20 Rate Blood Pressure 196/77 195/77 Blood Pressure 196/77 [Left] O2 Sat by Pulse 97 97 Oximetry 10/18/16 10/18/16 07:13 08:00 Temperature 98.0 F Pulse Rate 80 85 Respiratory 12 16 Rate Blood Pressure Blood Pressure 192/57 151/67 [Left] O2 Sat by Pulse 99 100 Oximetry - Reevaluation(s) Reevaluation #1: 10/18/16 07:15 Meds ordered a ED: 1 L normal saline over 1 hour Toradol 50 mg IV Zofran 4 mg IV Potassium 40 mg by mouth Pepcid 20 mg IV Clonidide 0.1 mg PO Reevaluation #2: 10/18/16 08:33 Mag 2g ordered ED Medical Decision Making - Lab Data Result diagrams: 10/18/16 05:46 10/18/16 05:46 Lab Results 10/18/16 10/18/16 10/18/16 Range/Units 05:46 05:46 05:46 WBC 12.2 H (4.5-11.0) K/mm3 RBC 3.84 (3.65-5.03) M/mm3 Hgb 9.6 L (10.1-14.3) gm/dl Hct 29.7 L (30.3-42.9) % MCV 77 L (79-97) fl MCH 25 L (28-32) pg MCHC 32 (30-34) % RDW 14.1 (13.2-15.2) % Plt Count 197 (140-440) K/mm3 Lymph % (Auto) 7.5 L (13.4-35.0) % [place] % (Auto) 7.1 (0.0-7.3) % Eos % (Auto) 0.5 (0.0-4.3) % Baso % (Auto) 0.1 (0.0-1.8) % Lymph # 0.9 L (1.2-5.4) K/mm3 [place] # 0.9 H (0.0-0.8) K/mm3 Eos # 0.1 (0.0-0.4) K/mm3 Baso # 0.0 (0.0-0.1) K/mm3 Seg Neutrophils % 84.8 H (40.0-70.0) % Seg Neutrophils # 10.3 H (1.8-7.7) K/mm3 Sodium 119 L* D (137-145) mmol/L Potassium 3.5 L (3.6-5.0) mmol/L Chloride 81.3 L (98-107) mmol/L Carbon Dioxide 20 L (22-30) mmol/L Anion Gap 21 mmol/L BUN 20 H (7-17) mg/dL Creatinine 1.1 (0.7-1.2) mg/dL Estimated GFR 47 ml/min BUN/Creatinine Ratio 18.18 % Glucose 104 H (65-100) mg/dL Calcium 8.0 L (8.4-10.2) mg/dL Total Bilirubin 0.90 (0.1-1.2) mg/dL Direct Bilirubin 0.2 (0-0.2) mg/dL Indirect Bilirubin 0.7 mg/dL AST 29 (5-40) units/L ALT 15 (7-56) units/L Alkaline Phosphatase 62 (35-129) units/L Total Protein 6.7 (6.3-8.2) g/dL Albumin 3.6 L (3.9-5) g/dL Albumin/Globulin Ratio 1.2 % Lipase 22 (13-60) units/L Urine Bilirubin (Negative) Urine RBC (Auto) (0.0-6.0) /HPF U Epithel Cells (Auto) (0-13.0) /HPF Urine Creatinine (0.1-20.0) mg/dL Urine Sodium mEq/L Urine Chloride (110-250) mEq/L 10/18/16 10/18/16 Range/Units 06:25 06:25 WBC (4.5-11.0) K/mm3 RBC (3.65-5.03) M/mm3 Hgb (10.1-14.3) gm/dl Hct (30.3-42.9) % MCV (79-97) fl MCH (28-32) pg MCHC (30-34) % RDW (13.2-15.2) % Plt Count (140-440) K/mm3 Lymph % (Auto) (13.4-35.0) % [place] % (Auto) (0.0-7.3) % Eos % (Auto) (0.0-4.3) % Baso % (Auto) (0.0-1.8) % Lymph # (1.2-5.4) K/mm3 [place] # (0.0-0.8) K/mm3 Eos # (0.0-0.4) K/mm3 Baso # (0.0-0.1) K/mm3 Seg Neutrophils % (40.0-70.0) % Seg Neutrophils # (1.8-7.7) K/mm3 Sodium (137-145) mmol/L Potassium (3.6-5.0) mmol/L Chloride (98-107) mmol/L Carbon Dioxide (22-30) mmol/L Anion Gap mmol/L BUN (7-17) mg/dL Creatinine (0.7-1.2) mg/dL Estimated GFR ml/min BUN/Creatinine Ratio % Glucose (65-100) mg/dL Calcium (8.4-10.2) mg/dL Total Bilirubin (0.1-1.2) mg/dL Direct Bilirubin (0-0.2) mg/dL Indirect Bilirubin mg/dL AST (5-40) units/L ALT (7-56) units/L Alkaline Phosphatase (35-129) units/L Total Protein (6.3-8.2) g/dL Albumin (3.9-5) g/dL Albumin/Globulin Ratio % Lipase (13-60) units/L Urine Bilirubin Neg (Negative) Urine RBC (Auto) 2.0 (0.0-6.0) /HPF U Epithel Cells (Auto) 1.0 (0-13.0) /HPF Urine Creatinine 36.9 H (0.1-20.0) mg/dL Urine Sodium 19 mEq/L Urine Chloride 12.0 L (110-250) mEq/L - Medical Decision Making Patient has significant change in her sodium level since recent discharge. This may be the cause of her current symptoms. Medications initiated. Patient has chronic anemia unchanged from recent admission. Patient requires admission to the hospital for treatment of symptomatic hyponatremia - Differential Diagnosis gastritis, hepatitis, UTI, Critical care attestation.: If time is entered above; I have spent that time in minutes in the direct care of this critically ill patient, excluding procedure time. ED Disposition Clinical Impression: Hyponatremia, Vomiting, Body aches, Uncontrolled hypertension, Hypokalemia, Hypomagnesemia Disposition: OP ADMITTED IP TO THIS HOSP Is pt being admited?: Yes Condition: Stable Time of Disposition: 07:09 (Dr sanchez/hosp)
[2016-10-18] MEDS ORDERED: APRESOLINE IV PRN (07:14)
[2016-10-18] MEDS ORDERED: ZOFRAN IV PRN (07:18)
--- NOTE | 2016-10-18 07:18 | History and Physical Report ---
History of Present Illness Date of examination: 10/18/16 Date of admission: 10/18/16 Chief complaint: Fever chills and body aches not feeling well for the last 2 days History of present illness: 86-year-old female patient recently discharged 2 days ago after receiving treatment for chest pain malignant hypertension was brought to the emergency room for generalized weakness fevered and chills and not feeling well Patient had a negative stress test and normal echocardiogram during previous admission, initial evaluation in the emergency room is consistent with Hypo-natremia, hypokalemia, hypomagnesemia and malignant hypertension with peak blood pressure soft 190s systolic [place] is hemodynamically stable and afebrile Denies any chest pain or shortness of breath Complains of generalized weakness Mild nausea and vomiting Past History Past Medical History: CAD, hypertension, other (hyponatremia ) Past Surgical History: Other (Surgery cataract) Social history: lives with family. denies: smoking, alcohol abuse, prescription drug abuse Family history: hypertension Medications and Allergies Allergies Allergy/AdvReac Type Severity Reaction Status Date / Time No Known Allergies Allergy Unverified 07/18/16 10:47 Home Medications Medication Instructions Recorded Confirmed Last Taken Type Cyanocobalamin (Vitamin B-12) 500 mcg PO DAILY 07/18/16 10/18/16 10/14/16 History [B-12] Aspirin [Aspirin TAB] 325 mg PO QDAY #30 tablet 07/23/16 10/18/16 Unknown Rx Ergocalciferol [Vitamin D2] 1 cap PO QWEEK 10/14/16 10/18/16 10/13/16 History Losartan [Cozaar] 100 mg PO QDAY 10/14/16 10/18/16 10/14/16 History hydrALAZINE [Apresoline TAB] 50 mg PO Q8HR 10/14/16 10/18/16 10/14/16 History Active Meds: Active Medications Aspirin (Aspirin) 325 mg PO QDAY ANDREAS Cyanocobalamin (Vitamin B-12) 500 mcg PO DAILY ANDREAS Enoxaparin Sodium (Lovenox) 30 mg SUB-Q QDAY ANDREAS Ergocalciferol (Vitamin D2) unit PO QWEEK ANDREAS Hydralazine HCl (Apresoline) 50 mg PO Q8HR ANDREAS Hydralazine HCl (Apresoline) 10 mg IV Q4HR PRN PRN Reason: Hypertension Sodium Chloride (Nacl 0.9% 1000 Ml) 1,000 mls @ 999 mls/hr IV BOLUS ONE Stop: 10/18/16 07:41 Last Admin: 10/18/16 06:59 Dose: 999 mls/hr Sodium Chloride (Nacl 0.9% 1000 Ml) 1,000 mls @ 75 mls/hr IV DIRECT ANDREAS Miscellaneous Medication (Losartan [Cozaar]) 100 mg PO QDAY [facility] Review of Systems Constitutional: fever, chills, no weight loss, no weight gain Ears, nose, mouth and throat: no nasal congestion, no nasal discharge Cardiovascular: no chest pain, no orthopnea, no palpitations Respiratory: no cough with sputum, no shortness of breath Gastrointestinal: nausea, vomiting Genitourinary Female: no pelvic pain, no dysuria Musculoskeletal: myalgias, no arthritis Integumentary: no rash, no lesions Neurological: weakness, no paralysis, no parathesias, no seizures Psychiatric: no anxiety, no depression Endocrine: no cold intolerance, no heat intolerance Hematologic/Lymphatic: no easy bruising, no easy bleeding Allergic/Immunologic: no urticaria, no allergic rhinitis Exam - Constitutional Vitals: Temp Pulse Resp BP Pulse Ox 98.7 F 87 20 195/77 97 10/18/16 05:28 10/18/16 05:28 10/18/16 05:28 10/18/16 06:52 10/18/16 05:28 General appearance: Present: mild distress, cachectic - EENT Eyes: Present: PERRL, EOM intact - Neck Neck: Present: supple, normal ROM - Respiratory Respiratory effort: normal Respiratory: bilateral: diminished, negative: rales, rhonchi, wheezing - Cardiovascular Rhythm: regular Heart Sounds: Present: S1 & S2 - Extremities Extremities: no ischemia, pulses intact, pulses symmetrical Peripheral Pulses: within normal limits - Abdominal General gastrointestinal: Present: soft, non-tender, non-distended, normal bowel sounds - Integumentary Integumentary: Present: clear, warm - Musculoskeletal Musculoskeletal: generalized weakness - Psychiatric Psychiatric: appropriate mood/affect, cooperative - Neurologic Neurologic: moves all extremities Results - Labs CBC & Chem 7: 10/18/16 05:46 10/18/16 05:46 Labs: Abnormal lab results 10/18/16 10/18/16 10/18/16 Range/Units 05:46 05:46 05:46 WBC 12.2 H (4.5-11.0) K/mm3 Hgb 9.6 L (10.1-14.3) gm/dl Hct 29.7 L (30.3-42.9) % MCV 77 L (79-97) fl MCH 25 L (28-32) pg Lymph % (Auto) 7.5 L (13.4-35.0) % Lymph # 0.9 L (1.2-5.4) K/mm3 Mcclain # 0.9 H (0.0-0.8) K/mm3 Seg Neutrophils % 84.8 H (40.0-70.0) % Seg Neutrophils # 10.3 H (1.8-7.7) K/mm3 Sodium 119 L* D (137-145) mmol/L Potassium 3.5 L (3.6-5.0) mmol/L Chloride 81.3 L (98-107) mmol/L Carbon Dioxide 20 L (22-30) mmol/L BUN 20 H (7-17) mg/dL Glucose 104 H (65-100) mg/dL Calcium 8.0 L (8.4-10.2) mg/dL Albumin 3.6 L (3.9-5) g/dL Urine Creatinine (0.1-20.0) mg/dL Urine Chloride (110-250) mEq/L 10/18/16 Range/Units 06:25 WBC (4.5-11.0) K/mm3 Hgb (10.1-14.3) gm/dl Hct (30.3-42.9) % MCV (79-97) fl MCH (28-32) pg Lymph % (Auto) (13.4-35.0) % Lymph # (1.2-5.4) K/mm3 Mcclain # (0.0-0.8) K/mm3 Seg Neutrophils % (40.0-70.0) % Seg Neutrophils # (1.8-7.7) K/mm3 Sodium (137-145) mmol/L Potassium (3.6-5.0) mmol/L Chloride (98-107) mmol/L Carbon Dioxide (22-30) mmol/L BUN (7-17) mg/dL Glucose (65-100) mg/dL Calcium (8.4-10.2) mg/dL Albumin (3.9-5) g/dL Urine Creatinine 36.9 H (0.1-20.0) mg/dL Urine Chloride 12.0 L (110-250) mEq/L Assessment and Plan --Malignant hypertension Resume home antihypertensives, when necessary hydralazine Closely monitor blood pressures, consider Cardene drip if no improvement --Hyponatremia Gentle hydration, closely monitor electrolytes Constant nephrology evaluation if no improvement -- hypomagnesemia Replenish per protocol and monitor levels -- hypokalemia Replace per protocol and monitor levels --Gentle debility/cachexia Supportive care nutrition supplements --Mild leukocytosis Probably stress-induced, rule out sepsis --Physical therapy occupational therapy --DC planning per case management Possible discharge home with home health in 1-2 days Versus placement --Full CODE STATUS Since condition treatment plan discussed in detail with the patient and the daughter at the bedside ER physician and the nurse
--- NOTE | 2016-10-18 07:21 | Admit Criteria Form ---
Admission Criteria Documentation: HYPONATREMIA; HYPERNATREMIA; HYPOKALEMIA; HYPERKALEMIA; HYPOCALCEMIA; HYPERCALCEMIA Clinical Indications for Inpatient Care (Place 'X' for any and all applicable criteria): Ongoing inpatient care may be indicated for ANY ONE of the following [G](1)(2)(3 )(5): [ X]I. Hyponatremia with ANY ONE of the following: [X ]a) Sodium less than 130 mEq/L (mmol/L) (new) (6)(22) [ ]b) Sodium less than 135 mEq/L (mmol/L) with ANY ONE of the following: [ ]i) Severe medical etiology requiring inpatient management (eg, heart failure, hypovolemia) [ ]ii) Altered mental status [ ]iii) Seizures [ ]II. Hypernatremia with ANY ONE of the following: [ ]a) Sodium greater than 155 mEq/L (mmol/L) [ ]b) Sodium greater than 150 mEq/L (mmol/L) with ANY ONE of the following: [ ] i) Altered mental status [ ]ii) Seizures [ ]iii) Severe medical etiology (eg, hypovolemia, diabetes insipidus) [ ]iv) Severe weakness [ ]v) Severe medical etiology (eg, hemolysis, infection, drug overdose) [ ]III. Hypokalemia with ANY ONE of the following: [ ]a) Potassium less than 2.5 mEq/L (mmol/L) despite outpatient and emergency treatment [ ]b) Potassium less than 3.0 mEq/L (mmol/L) with ANY ONE of the following: [ ]i) Weakness [ ]ii) Cardiac abnormality (eg, arrhythmia, conduction disturbance) [ ]iii) Cardiac ischemia [ ]iv) Ileus [ ]v) Ongoing medical cause requiring inpatient management. ( e.g., acute renal wasting, SIADH) [ ]vi) Other severe symptoms [ ] IV. Hyperkalemia with ANY ONE of the following: [ ]a) Potassium greater than 6.5 mEq/L (mmol/L) [ ]b) Potassium greater than 5 mEq/L (mmol/L) with ANY ONE of the following: [ ]i) Severe ECG findings [H] [ ]ii) Acute worsening of renal failure (creatinine greater than 2.5 mg/dL (221 micromoles/L) or significant elevation for age and size) [ ] V. Hypocalcemia with ANY ONE of the following: [ ]a) Calcium less than 7 mg/dL (1.75 mmol/L) despite outpatient and emergency treatment(19) [ ]b) Calcium less than 8 mg/dL (2 mmol/L) with significant symptoms or findings; examples include: [ ]i) Cardiac abnormality (eg, arrhythmia or conduction disturbance) [ ]ii) Altered mental status [ ]iii) Seizures [ ]iv) Breathing difficulty [ ]v) Muscle spasms [ ]. Hypercalcemia with ANY ONE of the following: [ ]a) Calcium greater than 14 mg/dL (3.5 mmol/L) [ ]b) Calcium greater than 12 mg/dL (3 mmol/L) with ANY ONE of the following: [ ]i) Significant dehydration or hypovolemia as indicated by ANY ONE of the following(2): [ ]1. Clinically significant dehydration as indicated by ANY ONE of the following: [ ]A. Acute loss of weight from baseline (5% of body weight in adults, 9% in pediatric patients) [ ]B. Hemodynamic instability [ ]C. Acute renal failure [ ]D. Serum sodium greater than 150 mEq/L (mmol/L) [ ]2) Dehydration that is persistent indicated by ALL of the following: [ ]A. Oral rehydration therapy not tolerated or insufficient to adequately correct dehydration [ ]B. Appropriate intravenous treatment (eg, fluids ) does not readily correct dehydration ie, after 12 to 24 hours of treatment) [ ]ii) Significant symptoms or findings; examples include: [ ]1) Altered mental status [ ]2) Cardiac abnormality (eg, arrhythmia, conduction disturbance) [ ]3) Cardiac abnormality (eg, arrhythmia, conduction disturbance) The original [facility] content created by [employer] has been revised. The portions of the content which have been revised are identified through the use of italic text or in bold, and [facility] has neither reviewed nor approved the modified material. All other unmodified content is copyright [facility] Please see references footnoted in the original [facility] edition 2016 Admission Criteria Met: Yes
[2016-10-18] MEDS ORDERED: LASIX IV ONE (07:55)
[2016-10-18] MEDS ORDERED: NACL 0.9% 1000 ML 1,000 ML IV SCH (08:00)
[2016-10-18] MEDS ORDERED: MAGNESIUM SULFATE 2GM/50ML 2 GM/50 ML BAG IV ONE (08:33)
[2016-10-18] MEDS ORDERED: NON-FORMULARY (Losartan [Cozaar] 100 MG) PO SCH (10:00)
[2016-10-18] MEDS ORDERED: PEPCID PO SCH (10:00)
[2016-10-18] MEDS: ASPIRIN PO SCH (13:03)
[2016-10-18] MEDS: LOVENOX SUB-Q SCH (13:03)
[2016-10-18] MEDS: COZAAR PO SCH (13:03)
[2016-10-18] MEDS: PEPCID PO SCH ×2 (13:04→22:19)
[2016-10-18] MEDS: VITAMIN B-12 PO SCH (13:04)
[2016-10-18 19:57] LABS: BUN/Creatinine Ratio 13.84; Calcium 7.7 mg/dL (8.4-10.2); Chloride 88.8 mmol/L (98-107); Potassium 4.3 mmol/L (3.6-5.0)
[2016-10-18] MEDS ORDERED: NACL 3% 500 ML IV ONE (20:26)
[2016-10-18] MEDS: APRESOLINE PO SCH ×2 (20:57→22:19)
[2016-10-19] MEDS: APRESOLINE PO SCH (06:14)
[2016-10-19 07:20] LABS: BUN/Creatinine Ratio 13.84; Calcium 7.6 mg/dL (8.4-10.2); Chloride 96.9 mmol/L (98-107); Magnesium 1.9 mg/dL (1.7-2.3); Potassium 3.9 mmol/L (3.6-5.0)
[2016-10-19] MEDS: VITAMIN B-12 PO SCH (10:35)
[2016-10-19] MEDS: ASPIRIN PO SCH (10:35)
[2016-10-19] MEDS: COZAAR PO SCH (10:36)
[2016-10-19] MEDS: PEPCID PO SCH (10:37)
[2016-10-19] MEDS: LOVENOX SUB-Q SCH (10:37)
[2016-10-19 12:55] VITALS: BP 142/66
--- NOTE | 2016-10-19 13:14 | Discharge Summary ---
Providers - Providers Date of Admission: 10/18/16 07:09 Date of discharge: 10/19/16 Attending physician: AMBAR BARRON 10/18/16 17:12 Physical Therapy Evaluation and Treat [CONS] Routine Comment: Reason For Exam: debility/unsteady gait Primary care physician: [employer] Hospitalization Reason for admission: not feeling well/hyponatremia/malignant hypertension Condition: Stable Hospital course: 86-year-old female patient with significant past medical history of hypertension coronary artery disease was admitted through emergency room with malignant hypertension and not feeling well Initial workup is consistent with multiple electrolyte imbalances with hyponatremia and hypomagnesemia and hypokalemia which was corrected Patient's daughters did not give her blood pressure medications at home, home antihypertensives hydralazine and Cozaar will resume Health-related management will corrected blood pressure was brought to reasonable levels today she is comfortable in bed, counseled the daughter who is the director of career resources strongly advised to adhere to the treatment plan Alert awake oriented 3 tolerating oral nutrition ambulatory without support [id number] evaluation physical examination done by me prior to discharge is unremarkable as detailed below Final diagnosis; malignant hypertension resolved Hyponatremia corrected Hyperkalemia corrected Hypomagnesemia corrected Medical noncompliance Disposition: DC/TX HOME UNDER HOME HEALTH Time spent for discharge: 32 min Core Measure Documentation - Palliative Care Palliative Care/ Comfort Measures: Not Applicable - Core Measures Any of the following diagnoses?: none Exam - Constitutional Vitals: Temp Pulse Resp BP Pulse Ox 97.9 F 79 16 142/66 99 10/19/16 07:30 10/19/16 12:54 10/19/16 12:54 10/19/16 12:54 10/19/16 12:54 General appearance: Present: no acute distress, well-nourished - EENT Eyes: Present: PERRL, EOM intact - Neck Neck: Present: supple, normal ROM - Respiratory Respiratory effort: normal Respiratory: negative: diminished, rales, rhonchi - Cardiovascular Rhythm: regular Heart Sounds: Present: S1 & S2 - Extremities Extremities: no ischemia, pulses intact, pulses symmetrical Peripheral Pulses: within normal limits - Abdominal General gastrointestinal: Present: soft, non-tender, non-distended - Integumentary Integumentary: Present: clear, warm - Musculoskeletal Musculoskeletal: strength equal bilaterally - Psychiatric Psychiatric: appropriate mood/affect, cooperative - Neurologic Neurologic: CNII-XII intact, moves all extremities Plan Activity: advance as tolerated, fall precautions Diet: regular Additional Instructions: f/u PMD 2 days Follow up with: PRIMARY CARE, [Primary Care Provider] - 3-5 Days
[2016-10-21] MEDS ORDERED: VITAMIN D2 PO SCH (10:00)
== END 2016-10-19 14:00 | disposition home or self-care (01) | DRG 641 ==
LOC: ED 04:59 → 4A 07:09
PROVIDERS: ADMIT Internal Medicine; ATTEND Internal Medicine
DX: E87.1 Hypo-osmolality and hyponatremia (principal); I10 Essential (primary) hypertension; I25.10 Atherosclerotic heart disease of native coronary artery without angina pectoris; R64 Cachexia; Z68.24 Body mass index [BMI] 24.0-24.9, adult; E83.42 Hypomagnesemia; D64.9 Anemia, unspecified; D72.829 Elevated white blood cell count, unspecified; E87.6 Hypokalemia; Z91.14 Patient's other noncompliance with medication regimen; Z86.73 Personal history of transient ischemic attack (TIA), and cerebral infarction without residual deficits; Z82.49 Family history of ischemic heart disease and other diseases of the circulatory system
CPT/HCPCS: 36415; 80048; 80074; 81001; 82436; 82570; 83690; 83735; 84300; 85025; 96361; 96374; 96375; J1650; J1885; J1940; J2405; J3475; J7030